=== PATIENT | female | born 1960 | race Caucasian/White ===

== ENCOUNTER 2016-08-25 07:39 | Day surgery (SDC) | payer OTHER ==
[~2016-08-25] VITALS: Ht 160 cm; Wt 75.8 kg
[~2016-08-25 07:39] MED LIST: CHOL100055 PO; LIDOCAINE 1% (10mg/ml) 2ml SDV INJ ONE; LR 1,000 ML IV SCH; PYRI100T2 PO
--- OUTSIDE RECORDS SUMMARY | 2016-08-25 07:42 | XMS REPORT | Referral Summary ---
Author Organization Unknown Address Unknown Phone Unavailable Care Team Providers Care Pouncer Name Role Phone Master Reece Primary Care Physician [phone] Encounter VC Date(s): 05/29/14 - 05/29/14 Via ISAC Finn, Sean, Urology [address] [place] [address] [address] [place], [place] [address] Discharge Diagnosis: Chronic trigonitis Discharge Disposition: Home or Self Care Attending Physician: Momo Bergman JR, MD Admitting Physician: Momo Bergman JR, MD Referring Physician: Master Reece DO Vital Signs Most recent to 1 oldest [Reference Range]: Blood Pressure 122/68 mmHg [90-140/60-90 mmHg] (05/29/14 2:10 PM) Problem List No data available for this section Allergies, Adverse Reactions, Alerts Substance Reaction Severity Status Bactrim DS Active Medications Tylenol Extra Strength mg, Oral, q6hr, 0 Refill(s) Start Date: 05/02/14 Status: Ordered Results No data available for this section Immunizations Vaccine Date Refusal Reason tetanus/diphth/pertuss (Tdap) adult/adol 05/11/01 Procedures Procedure Date Related Diagnosis Body Site Cystoscopy using panendoscope1 05/12/14 Mammogram - screening2 01/13/14 1Urethral calibration and dilitation. Hydrodistention of the bladder.SLTvaporization of chronic diffuse trigonitis. Bimanual pelvic exam. 2neg. result, done at [facility]- recommended to be done in 1 yr. Social History Social History Type Response Smoking Status Never smoker Assessment and Plan Extracted from: Title: Office Visit Note Author: Momo Bergman JR, MD Date: 05/29/14 Assessment/Plan Chronic trigonitis Status post cystoscopy, urethral calibration and dilatation, hydrodistention of bladder, and SLT laser vaporization of chronic diffuse trigonitis. She's doing well. I would like to see her again in 4 weeks. In about one week patient should be able to resume her normal activit as before surgery was done. Ordered: Office Visit Level 3 Est [id number]
--- OUTSIDE RECORDS SUMMARY | 2016-08-25 07:42 | XMS REPORT | Referral Summary ---
Author Author [facility], [facility] Medicine Organization Via [facility]AC Finn [facility] Address Unknown Phone Unavailable Care Team Providers Care Choke Reamer Name Role Phone Master Reece Primary Care Physician [phone] Encounter Date(s): 12/01/14 - 12/01/14 Via ISAC Finn [facility], [address] [place] [id number] Discharge Diagnosis: Acute UTI Discharge Diagnosis: Dysuria Discharge Disposition: 01-Home or Self Care Attending Physician: Meghna Bergman APRN Admitting Physician: Meghna Bergman APRN Vital Signs Most recent to 1 oldest [Reference Range]: Temperature Tympanic 36.6 degC [36.6-38.1 degC] (12/01/14 10:46 AM) Peripheral Pulse 74 bpm Rate [60-100 bpm] (12/01/14 10:46 AM) Blood Pressure 112/68 mmHg [90-140/60-90 mmHg] (12/01/14 10:46 AM) Problem List Condition Effective Dates Status Health Status Informant Obesity(Confirmed) Active patient Trigonitis(Confirmed Active ) Allergies, Adverse Reactions, Alerts Substance Reaction Severity Status Bactrim DS Active Medications oxybutynin 15 mg/24 hr oral tablet, extended release 15 mg 1 tabs, Oral, Daily, # 42 tabs, 0 Refill(s), Pharmacy: [facility] [id number], 1 tabs Oral Daily,x6 weeks Start Date: 06/11/15 Stop Date: 07/23/15 Status: Ordered Tylenol Regular Strength mg, Oral, q4hr, 0 Refill(s) Start Date: 06/11/15 Status: Ordered Results Urinalysis Most recent to 1 oldest [Reference Range]: UA Color Lt Yellow (12/01/14 11:10 AM) UA Appear Clear (12/01/14 11:10 AM) UA pH [5.0-8.0] 7.5 (12/01/14 11:10 AM) UA Leuk Est Pos 2+ [Negative] *ABN* (12/01/14 11:10 AM) UA Nitrite Negative [Negative] (12/01/14 11:10 AM) UA Protein Negative [Negative] (12/01/14 11:10 AM) UA Glucose Negative [Negative] (12/01/14 11:10 AM) UA Ketones Negative [Negative] (12/01/14 11:10 AM) UA Urobilinogen 0.2 mg/dL (12/01/14 11:10 AM) UA Bili [Negative] Negative (12/01/14 11:10 AM) UA Blood Negative (12/01/14 11:10 AM) UA Spec Grav 1.015 [1.003-1.030] (12/01/14 11:10 AM) Type Clean Catch (12/01/14 11:10 AM) UA WBC [0-4] 5-10 *ABN* (12/01/14 11:10 AM) UA RBC [0-2] None seen (12/01/14 11:10 AM) Epithelial Cells 2-5 (12/01/14 11:10 AM) UA Bacteria Rare (12/01/14 11:10 AM) UA Mucous Present (12/01/14 11:10 AM) Microbiology Reports TEST: Urine Culture STATUS: Auth (Verified) BODY SITE: SOURCE: Urine COLLECTED DATE/TIME: 12/01/14 11:10 AM Urine Culture Normal urogenital/skin oskar present Immunizations Vaccine Date Refusal Reason tetanus/diphth/pertuss (Tdap) adult/adol 05/11/01 Procedures Procedure Date Related Diagnosis Body Site Cystoscopy using panendoscope1 05/12/14 Mammogram - screening2 01/13/14 1Urethral calibration and dilitation. Hydrodistention of the bladder.SLTvaporization of chronic diffuse trigonitis. Bimanual pelvic exam. 2neg. result, done at [facility]- recommended to be done in 1 yr. Social History Social History Type Response Smoking Status Never smoker Assessment and Plan No data available for this section
--- OUTSIDE RECORDS SUMMARY | 2016-08-25 07:42 | XMS REPORT | Referral Summary ---
Author Author [facility] Organization [facility], [facility] Address Unknown Phone Unavailable Care Team Providers Care Vacuum Cooker Operator Name Role Phone Master Reece Primary Care Physician [phone] Encounter VC Date(s): 01/25/16 - 01/25/16 [facility] [address], [place] [address] Discharge Diagnosis: Overactive bladder Discharge Disposition: 01-Home or Self Care Attending Physician: Chucho Fisher MD Admitting Physician: Chucho Fisher MD Vital Signs Most recent to 1 oldest [Reference Range]: Peripheral Pulse 68 bpm Rate [60-100 bpm] (01/25/16 9:03 AM) Blood Pressure 114/72 mmHg [90-140/60-90 mmHg] (01/25/16 9:03 AM) Problem List Condition Effective Dates Status Health Status Informant Obesity(Confirmed) Active patient Syncope and Active collapse(Confirmed) Trigonitis(Confirmed Active ) Allergies, Adverse Reactions, Alerts Substance Reaction Severity Status Bactrim DS Active Medications Tylenol Regular Strength 1 tabs, Oral, q4hr, as needed for pain, 0 Refill(s) Start Date: 06/11/15 Status: Ordered Results No data available for this section Immunizations Vaccine Date Refusal Reason tetanus/diphth/pertuss (Tdap) adult/adol 05/11/01 Procedures Procedure Date Related Diagnosis Body Site Cystoscopy using panendoscope1 05/12/14 Mammogram - screening2 01/13/14 1Urethral calibration and dilitation. Hydrodistention of the bladder.SLTvaporization of chronic diffuse trigonitis. Bimanual pelvic exam. 2neg. result, done at [facility]- recommended to be done in 1 yr. Social History Social History Type Response Smoking Status Never smoker Assessment and Plan Extracted from: Title: Office Visit Note Author: Chucho Fisher MD Date: 01/25/16 Assessment/Plan Overactive bladder Explained to the patient that her symptoms are indicative of overactive bladderthe etiology of which ismost often idiopathic. Discussed the treatment optionsincluding medications,neuro- stimulation and Botox injections. Like to do a complete evaluation with cystoscopyfor which I'll schedule. I gave her samples of 10 mg Vesicare which she will try and let me knowofthe outcomeat a follow-up . Also advised to restrict fluidsparticularly the bladder irritantslike caffeine drinks and carbonated drinks. She'll also maintain a voiding diary. Follow- up in 2 weeks.
--- OUTSIDE RECORDS SUMMARY | 2016-08-25 07:42 | XMS REPORT | Referral Summary ---
Author Author [facility] Organization [facility] Address Unknown Phone Unavailable Care Team Providers Care Clinical Product Manager Name Role Phone Master Reece Primary Care Physician [phone] Encounter VC Date(s): 07/26/15 - 07/26/15 [facility] [address] [place] [address] [facility] Discharge Diagnosis: Acute upper respiratory infection Discharge Disposition: 01-Home or Self Care Attending Physician: Fabi Rothman PA-C Attending Physician: Provider, Immediate Care Admitting Physician: Provider, Immediate Care Vital Signs Most recent to 1 oldest [Reference Range]: Temperature Oral 36.4 degC [35.8-37.3 degC] (07/26/15 3:50 PM) Peripheral Pulse 72 bpm Rate [60-100 bpm] (07/26/15 3:50 PM) Blood Pressure 106/60 mmHg [90-140/60-90 mmHg] (07/26/15 3:50 PM) SpO2 95 % (07/26/15 3:50 PM) Problem List Condition Effective Dates Status Health Status Informant Obesity(Confirmed) Active patient Trigonitis(Confirmed Active ) Allergies, Adverse Reactions, Alerts Substance Reaction Severity Status Bactrim DS Active Medications Flonase 50 mcg/inh nasal spray 1 sprays, Nasal, BID, # 16 g, 0 Refill(s), Pharmacy: [facility] [id number] Start Date: 07/26/15 Status: Ordered oxybutynin 15 mg/24 hr oral tablet, extended release 15 mg 1 tabs, Oral, Daily, # 42 tabs, 0 Refill(s), Pharmacy: [id number], 1 tabs Oral Daily,x6 weeks Start Date: [...] Bimanual pelvic exam. 2neg. result, done at [facility]- recommended to be done in 1 yr. Social History Social History Type Response Smoking Status Never smoker Assessment and Plan Extracted from: Title: Ambulatory Patient Education Author: Fabi Rothman PA-C Date: 07/25 ENT Infeccin del tracto respiratorio superior (Upper Respiratory Infection) La mayora de las infecciones del tracto respiratorio superior son infecciones virales de las vas que llevan el aire a los pulmones. Un infeccin del tracto respiratorio superior afecta la nariz, la garganta y las vas respiratorias superiores. El tipo ms frecuente de infeccin del tracto respiratorio superior es la nasofaringitis, que habitualmente se conoce chaya "resfro comn". Las infecciones del tracto respiratorio superior siguen merrill curso y por lo general se curan solas. En la mayora de los casos, la infeccin del tracto respiratorio superior no requiere atencin mdica, brant a veces, despus de mil infeccin viral, puede surgir mil infeccin bacteriana en las vas respiratorias superiores. Maypearl se conoce chaya infeccin secundaria. Las infecciones sinusales y en el odo medio son tipos frecuentes de infecciones secundarias en el tracto respiratorio superior. La neumona bacteriana tambin puede complicar un cuadro de infeccin del tracto respiratorio superior. Sarina tipo de infeccin puede empeorar el asma y la enfermedad pulmonar obstructiva crnica (EPOC). En algunos casos, estas complicaciones pueden requerir atencin mdica de emergencia y poner en peligro la abraham. CAUSAS Sadia todas las infecciones del tracto respiratorio superior se deben a los virus. Un virus es un tipo de microbio que puede contagiarse de mil persona a otra. FACTORES DE RIESGO Puede estar en riesgo de sufrir mil infeccin del tracto respiratorio superior si: Fuma. Tiene mil enfermedad pulmonar o cardaca crnica. Tiene debilitado el sistema de defensa (inmunitario) del cuerpo. Es muy joven o de edad muy avanzada. Tiene asma o alergias nasales. Trabaja en reas donde hay marleen gente o poca ventilacin. Trabaja en mil escuela o en un centro de atencin mdica. SIGNOS Y SNTOMAS Habitualmente, los sntomas aparecen de 2a 3das despus de entrar en contacto con el virus del resfro. La mayora de las infecciones virales en el tracto respiratorio superior herr de 7a 10das. Sin embargo, las infecciones virales en el tracto respiratorio superior a causa del virus de la gripe pueden durar de 14a 18das y, habitualmente, son ms graves. Entre los sntomas se pueden incluir los siguientes: Secrecin o congestin nasal. Estornudos. Tos. Dolor de garganta. Dolor de lenin. Fatiga. Fiebre. Prdida del apetito. Dolor en la frente, detrs de los ojos y por encima de los pmulos ( dolor sinusal). Mavis musculares. DIAGNSTICO El mdico puede diagnosticar mil infeccin del tracto respiratorio superior mediante los siguientes estudios: Examen fsico. Pruebas para verificar si los sntomas no se deben a otra afeccin, por ejemplo: Faringitis estreptoccica. Sinusitis. Neumona. Asma. TRATAMIENTO Esta infeccin desaparece blaise, con el tiempo. No puede curarse con medicamentos, brant a menudo se prescriben para aliviar los sntomas. Los medicamentos pueden ser tiles para lo siguiente: Bajar la fiebre. Reducir la tos. Aliviar la congestin nasal. INSTRUCCIONES PARA EL CUIDADO EN EL HOGAR [place] los medicamentos solamente chaya se lo haya indicado el mdico. A fin de aliviar el dolor de garganta, shady grgaras con solucin salina templada o consuma caramelos para la tos, chaya se lo haya indicado el m dico. Use un humidificador de vapor clido o inhale el vapor de la ducha para aumentar la humedad del aire. [place]pearl facilitar la respiracin. Smitha suficiente lquido para mantener la orina silvina o de color amarillo plido. Consuma sopas y otros caldos transparentes, y alimntese dulce. Descanse todo lo que sea necesario. Regrese al trabajo cuando la temperatura se le haya normalizado o cuando el mdico lo autorice. Es posible que deba quedarse en merrill casa desirae un tiempo prolongado, para no infectar a los dems. Tambin puede usar un barbijo y lavarse las maria antonia con cuidado para evitar la propagacin del virus. Aumente el uso del inhalador si tiene asma. No consuma ningn producto que contenga tabaco, lo que incluye cigarrillos, tabaco de mascar o cigarrillos electrnicos. Si necesita ayuda para dejar de fumar, consulte al mdico. PREVENCIN La mejor manera de protegerse de un resfro es mantener mil higiene adecuada. Evite el contacto oral o fsico con personas que tengan sntomas de resfro. En maverick de contacto, lvese las maria antonia con frecuencia. No hay pruebas claras de que la vitaminaC, la vitaminaE, la equincea o el ejercicio reduzcan la probabilidad de contraer un resfro. Sin embargo, siempre se recomienda descansar mucho, hacer ejercicio y alimentarse dulce. SOLICITE ATENCIN MDICA SI: Merrill estado empeora en lugar de mejorar. Los medicamentos no logran controlar los sntomas. Tiene escalofros. La sensacin de falta de aire empeora. Tiene mucosidad marrn o marcie. Tiene secrecin nasal amarilla o marrn. Le duele la rain, especialmente al inclinarse hacia adelante. Tiene fiebre. Tiene los ganglios del jocelyn hinchados. Siente dolor al tragar. Tiene zonas vipin en la parte de atrs de la garganta. SOLICITE ATENCIN MDICA DE INMEDIATO SI: Tiene sntomas intensos o persistentes de: Dolor de lenin. Dolor de odos. Dolor sinusal. Dolor en el pecho. Tiene enfermedad pulmonar crnica y cualquiera de estos sntomas: Sibilancias. Tos prolongada. Tos con ebenezer. Cambio en la mucosidad habitual. Presenta rigidez en el jocelyn. Tiene cambios en: La visin. La audicin. El pensamiento. El estado de alexa. ASEGRESE DE QUE: Comprende estas instrucciones. Controlar merrill afeccin. Recibir ayuda de inmediato si no mejora o si empeora. Esta informacin no tiene chaya fin reemplazar el consejo del mdshawn. Aseg rese de hacerle al lauryn cualquier pregunta que orlandoga. Document Released: 02/04/2006 Document Revised: 02/13/2015 ExitCare Patient Information 2015 [employer] [facility]. No follow up information was provided. Extracted from: Title: Office Visit Note Author: Fabi Rothman PA-C Date: 07/26/15 Assessment/Plan Acute upper respiratory infection Discussed with patient that this appears to be a viral illness. Recommend Flonase nasal spray. Continue over-the- counter cough and cold medication. Recommend supportive care. Rest. Practice good hand hygiene. Increase fluids.Tylenol/Ibuprofen as needed for fever or pain. FU with PCP if not improving, worsening symptoms, or as needed. Questions were answered. Patient verbalized understanding. Patient left in stable condition. Ordered: fluticasone nasal, 1 sprays, Nasal, BID, # 16 g, 0 Refill(s), Pharmacy: [facility] [id number] Office Visit Level 3 Est [id number]
--- OUTSIDE RECORDS SUMMARY | 2016-08-25 07:42 | XMS REPORT | Continuity of Care Document ---
Author Author [facility] Organization [facility] Address Unknown Phone Unavailable Support Name Relationship Address Phone ALESIA GUZMAN MD Caregiver [address] [place] [address] [place], [place] [phone] ROSA CALDERA DO Caregiver [address] [place] [address] [place] [address] [phone] REYES GANDHI Next Of Kin [address] [place], [place] [address] Insurance Providers Payer Name Policy Number Subscriber Name Relationship [employer] [id number] Reyes Gandhi 01 Spouse Advance Directives Directive Response Recorded Date/Time Ordered Resuscitation Status Full Code 05/12/14 6:30am Problems No known problems or medical conditions. Medications Medication Dose Route Sig Days/Qty Instructions Order Date Discontinued Date Status Pyridoxine HCl 1 Tab PO DAILY 05/12/14 Active Cholecalciferol (Vitamin D3) 1 Cap PO DAILY 05/12/14 Active Social History Social History Problem Response Recorded Date/Time Chewing Tobacco Status No 05/12/2014 7:30am Hx Substance Use No 05/12/2014 7:30am Hx Alcohol Use No 05/12/2014 7:30am Query Response Start Date Stop Date Smoking Status Never smoker Hospital Discharge Instructions No hospital discharge instructions. Plan of Care No plan of care. Functional Status No functional status results. Allergies, Adverse Reactions, Alerts Allergen Type Severity Reaction Status Last Updated NKDA Allergy Unknown Active 05/12/14 Immunizations Name Given Type Hx Influenza Vaccination No Historical Hx Pneumococcal Vaccination No Historical Hx Influenza Vaccination No Historical Vital Signs Acute Vital Signs Vital Response Date/Time Temperature (Fahrenheit) 97.6 deg F (96.8 - 99.1) Temperature (Calculated Celsius) 36.60529 degrees C (36.0 - 37.3) Temperature Source Axillary Pulse Rate (adult) 52 bpm (60 - 100) Respiratory Rate 16 breaths/min (10 - 20) O2 Sat by Pulse Oximetry 100 % (90 - 100) Oxygen Delivery Method Room Air Blood Pressure 122/56 mm Hg Blood Pressure Source Automatic Cuff Height 5 ft 3 in Weight 165 lb Body Mass Index 29.0 kg/m^2 Results No known relevant diagnostic tests, laboratory data and/or discharge summary. Procedures No known history of procedures.
--- OUTSIDE RECORDS SUMMARY | 2016-08-25 07:43 | XMS REPORT | Referral Summary ---
Author Author [facility] Finn [facility], [facility] Organization Via KaileeISAC Christensen [facility] Address Unknown Phone Unavailable Care Team Providers Care Linking Machine Operator Name Role Phone Master Reece Primary Care Physician [phone] Encounter VC Date(s): 03/06/16 - 03/06/16 [facility] [place] [address] Discharge Diagnosis: Swollen L ankle Discharge Disposition: 01-Home or Self Care Attending Physician: Master Reece DO Admitting Physician: Master Reece DO Vital Signs Most recent to 1 oldest [Reference Range]: Temperature Tympanic 36 degC [36.6-38.1 degC] *LOW* (03/06/16 4:16 PM) Peripheral Pulse 66 bpm Rate [60-100 bpm] (03/06/16 4:16 PM) Blood Pressure 150/80 mmHg [90-140/60-90 mmHg] *HI* (03/06/16 4:16 PM) Problem List Condition Effective Dates Status Health Status Informant Obesity(Confirmed) Active patient Syncope and Active collapse(Confirmed) Trigonitis(Confirmed Active ) Allergies, Adverse Reactions, Alerts Substance Reaction Severity Status Bactrim DS Active Fish Oil Active VESIcare swelling in hand Active Medications Tylenol Regular Strength 1 tabs, [...] Bimanual pelvic exam. 2neg. result, done at [facility]- recommended to be done in 1 yr. Social History Social History Type Response Smoking Status Never smoker Assessment and Plan Extracted from: Title: Office Visit Note Author: Master Reece DO Date: 03/06/16 Assessment/Plan Swollen L ankle 1. Labs from 2 weeks ago reviewed in detail with the patient include CBC, complete metabolic profile, C-reactive protein, rheumatoid factor and sedimentation rate. Her sedimentation rate was slightly elevated, the rest of labs are essentially normal. 2. 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 3. Referral to senior windows engineer is pending 4. She was given Kenalog 120 mg IM. 5. We will try to get her in to see senior windows engineer sooner than her April 29 appointment. Ordered: Office Visit Level 4 Est [id number]
--- OUTSIDE RECORDS SUMMARY | 2016-08-25 07:43 | XMS REPORT | Referral Summary ---
Author Author [facility], [facility] Organization [facility] Finn [facility] Address Unknown Phone Unavailable Care Team Providers Care Director Learning Name Role Phone Master Reece Primary Care Physician [phone] Encounter VC Date(s): 02/04/16 - 02/04/16 [facility] [address] [place] [address] Discharge Diagnosis: Drug reaction Discharge Diagnosis: Hand joint pain Discharge Disposition: 01-Home or Self Care Attending Physician: Master Reece DO Admitting Physician: Master Reece DO Vital Signs Most recent to 1 oldest [Reference Range]: Temperature Tympanic 36.2 degC [36.6-38.1 degC] *LOW* (02/04/16 3:03 PM) Peripheral Pulse 56 bpm Rate [60-100 bpm] *LOW* (02/04/16 3:03 PM) Blood Pressure 120/70 mmHg [90-140/60-90 mmHg] (02/04/16 3:03 PM) Problem List Condition Effective Dates Status Health Status Informant Obesity(Confirmed) Active patient Syncope and Active collapse(Confirmed) Trigonitis(Confirmed Active ) Allergies, Adverse Reactions, Alerts Substance Reaction Severity Status Bactrim DS Active Fish Oil Active [facility]care swelling in hand Active Medications predniSONE 20 mg oral tablet 40 mg 2 tabs, Oral, Daily, with food starting tomorrow, X 4 days, # 8 tabs, 0 Refill(s), Pharmacy: [facility] [id number], 2 tabs Oral Daily,x4 days,Instr :with food; starting tomorrow Start Date: 02/03/16 Stop Date: 02/07/16 Status: Ordered Tylenol Regular Strength 1 tabs, Oral, q4hr, as needed for pain, 0 Refill(s) Start Date: 06/11/15 Status: Ordered VESIcare 10 mg oral tablet 10 mg 1 tabs, Oral, Daily, # 30 tabs, 0 Refill(s) Start Date: 02/04/16 Status: Ordered Results No data available for this section Immunizations Vaccine Date Refusal Reason tetanus/diphth/pertuss (Tdap) adult/adol 05/11/01 Procedures Procedure Date Related Diagnosis Body Site Cystoscopy using panendoscope1 05/12/14 Mammogram - screening2 01/13/14 1Urethral calibration and dilitation. Hydrodistention of the bladder.SLTvaporization of chronic diffuse trigonitis. Bimanual pelvic exam. 2neg. result, done at [facility]- recommended to be done in 1 yr. Social History Social History Type Response Smoking Status Never smoker Assessment and Plan Extracted from: Title: Office Visit Note Author: Master Reece DO Date: 02/04/16 Assessment/Plan 1.Drug reaction 1. Immediate care note was reviewed in detail. 2. Based on the patient's history, it sounds like she had erythema multiforme representation. This is documented side effects of Vesicare. 3. Patient was advised that the treatment with Kenalog followed by prednisone is appropriate and she should continue. 4. Continue holding Vesicare until she follows up with Dr. Fisher Ordered: Office Visit Level 3 Est [id number] 2.Hand joint pain 1. Recommendations as above. 2. Continue prednisone. 3. Follow-up if no resolution after steroid treatment. Ordered: Office Visit Level 3 Est [id number]
--- OUTSIDE RECORDS SUMMARY | 2016-08-25 07:43 | XMS REPORT | Referral Summary ---
Author Author [facility], Family [facility] Organization [facility] Address Unknown Phone Unavailable Care Team Providers Care Roller Machine Operator Name Role Phone Master Reece Primary Care Physician [phone] Encounter VC Date(s): 10/19/15 - 10/19/15 [facility] [place] [address] Discharge Disposition: 01-Home or Self Care Attending Physician: Master Reece DO Admitting Physician: Master Reece DO Vital Signs Most recent to 1 oldest [Reference Range]: Temperature Tympanic 36.1 degC [36.6-38.1 degC] *LOW* (10/19/15 8:59 AM) Peripheral Pulse 68 bpm Rate [60-100 bpm] (10/19/15 8:59 AM) Blood Pressure 132/68 mmHg [90-140/60-90 mmHg] (10/19/15 8:59 AM) Problem List Condition Effective Dates Status Health Status Informant Obesity(Confirmed) Active patient Trigonitis(Confirmed Active ) Allergies, Adverse Reactions, Alerts Substance Reaction Severity Status Bactrim DS Active Medications Flonase 50 mcg/inh nasal spray 1 sprays, Nasal, BID, # 16 g, 6 Refill(s), Pharmacy: [facility] [id number] Start Date: 10/19/15 Stop Date: 05/16/16 Status: Ordered meclizine 25 mg oral tablet 25 mg 1 tabs, Oral, TID, as needed for motion sickness, # 30 tabs, 0 Refill(s), Pharmacy: [facility] [id number], 1 tabs Oral TID,PRN:as needed for motion sickness Start Date: 10/19/15 Stop Date: 11/18/15 Status: Ordered oxybutynin 15 mg/24 hr oral tablet, extended release 15 mg 1 tabs, Oral, Daily, # 42 tabs, 0 Refill(s), Pharmacy: [facility] [id number], 1 tabs Oral Daily,x6 weeks Start Date: 06/11/15 Stop Date: 07/23/15 Status: Ordered Tylenol Regular Strength mg, Oral, q4hr, 0 Refill(s) Start Date: 06/11/15 Status: Ordered Results Hematology Most recent to 1 oldest [Reference Range]: WBC [4.8-10.8 5.9 10*3/uL 10*3/uL] (10/19/15 9:40 AM) RBC [4.00-5.20] 4.28 (10/19/15 9:40 AM) Hgb [12.0-16.0 13.2 gm/dL gm/dL] (10/19/15 9:40 AM) Hct [37.0-47.0 %] 38.4 % (10/19/15 9:40 AM) MCV [82.0-99.0 fL] 89.7 fL (10/19/15 9:40 AM) MCH [27.0-32.0 pg] 30.8 pg (10/19/15 9:40 AM) MCHC [32.0-36.0 34.4 gm/dL gm/dL] (10/19/15 9:40 AM) RDW [11.5-14.5 %] 12.6 % (10/19/15 9:40 AM) Platelet [150-400 225 10*3/uL 10*3/uL] (10/19/15 9:40 AM) MPV [8.8-14.8 fL] 11.0 fL (10/19/15 9:40 AM) Immature 0.2 % Granulocytes (10/19/15 9:40 AM) [0.0-1.0 %] Neutrophils [51-75 61 % %] (10/19/15 9:40 AM) Lymphocytes [20-46 30 % %] (10/19/15 9:40 AM) Monocytes [4-11 %] 9 % (10/19/15 9:40 AM) Eosinophils [0-4 %] 0 % (10/19/15 9:40 AM) Basophils [0-2 %] 0 % (10/19/15 9:40 AM) Neutro Absolute 3.60 10*3 [1.90-7.00 10*3] (10/19/15 9:40 AM) Lymph Absolute 1.73 10*3 [0.80-3.30 10*3] (10/19/15 9:40 AM) [place] Absolute 0.51 10*3 [0.30-1.00 10*3] (10/19/15 9:40 AM) Eos Absolute 0.00 10*3 [0.00-0.50 10*3] (10/19/15 9:40 AM) Baso Absolute 0.02 10*3 [0.00-0.20 10*3] (10/19/15 9:40 AM) Chemistry Most recent to 1 oldest [Reference Range]: Sodium Lvl [135-144 141 mEq/L mEq/L] (10/19/15 9:40 AM) Potassium Lvl 4.4 mEq/L [3.5-5.2 mEq/L] (10/19/15 9:40 AM) Chloride [99-111 106 mEq/L mEq/L] (10/19/15 9:40 AM) CO2 [22-31 mEq/L] 27 mEq/L (10/19/15 9:40 AM) AGAP [3-20] 8 (10/19/15 9:40 AM) BUN [10-20 mg/dL] 13 mg/dL (10/19/15 9:40 AM) Glucose Lvl [70-99 95 mg/dL mg/dL] (10/19/15 9:40 AM) Creatinine Lvl 0.73 mg/dL [0.57-1.11 mg/dL] (10/19/15 9:40 AM) eGFR [>60 mL/min] >60 mL/min 1 (10/19/15 9:40 AM) Calcium Lvl 9.5 mg/dL [8.9-10.5 mg/dL] (10/19/15 9:40 AM) Albumin Lvl [3.5-5.0 4.6 gm/dL gm/dL] (10/19/15 9:40 AM) Total Protein 7.3 gm/dL [6.4-8.3 gm/dL] (10/19/15 9:40 AM) Globulin [1.8-4.0 2.7 gm/dL gm/dL] (10/19/15 9:40 AM) ALT [0-55 U/L] 11 U/L (10/19/15 9:40 AM) AST [5-34 U/L] 16 U/L (10/19/15 9:40 AM) Alk Phos [40-150 105 U/L U/L] (10/19/15 9:40 AM) Bili Total [0.2-1.2 0.7 mg/dL mg/dL] (10/19/15 9:40 AM) Chol [0-199 mg/dL] 230 mg/dL *HI* (10/19/15 9:40 AM) Trig [0-149 mg/dL] 96 mg/dL (10/19/15 9:40 AM) HDL [40-84 mg/dL] 69 mg/dL (10/19/15 9:40 AM) LDL [0-130 mg/dL] 142 mg/dL *HI* (10/19/15 9:40 AM) VLDL Cholesterol 19 mg/dL [0-28 mg/dL] (10/19/15 9:40 AM) Cardiac Risk 3.3 [0.0-5.0] (10/19/15 9:40 AM) 1Result Comment: Multiply eGFR results by 1.21 for race. Immunizations Vaccine Date Refusal Reason tetanus/diphth/pertuss (Tdap) adult/adol 05/11/01 Procedures Procedure Date Related Diagnosis Body Site Collection of venous blood by venipuncture 10/19/15 Cystoscopy using panendoscope1 05/12/14 Mammogram - screening2 01/13/14 1Urethral calibration and dilitation. Hydrodistention of the bladder.SLTvaporization of chronic diffuse trigonitis. Bimanual pelvic exam. 2neg. result, done at [facility]- recommended to be done in 1 yr. Social History Social History Type Response Smoking Status Never smoker Assessment and Plan Extracted from: Title: Office Visit Note Author: Master Reece DO Date: 10/19/15 Assessment/Plan Allergic rhinitis 1. Continue with Flonase one puff per nostril twice a day. 2. Consider ttel-zwe-dyrhefl antihistamine. BPPV (benign paroxysmal positional vertigo) 1. History and clinical finding consistent with benign paroxysmal positional vertigo. Pathophysiology of this presentation was discussed in detail with the patient, handout was provided in Welsh, all questions were answered. 2. Meclizine one tablet every 8 hours as needed for dizziness. 3. She was referred to physical therapy for Monae's maneuver treatment 4. Follow-up if worsening presentation. Ordered: CBC w/ Differential Comprehensive Metabolic Panel Hemoglobin A1c Lipid Panel Office Visit Level 4 Est 07466 Female pelvic pain 1. We will set her up for repeat pelvic ultrasound. 2. If symptoms persist then we plan on sending her to iridologist. Ordered: Hemoglobin A1c Lipid Panel Office Visit Level 4 Est 36135 US Transvaginal/Pelvic Complete Mixed hyperlipidemia 1. Fasting labs ordered today, report is pending. Ordered: CBC w/ Differential Comprehensive Metabolic Panel Hemoglobin A1c Lipid Panel Office Visit Level 4 Est 55610 Orders: fluticasone nasal, 1 sprays, Nasal, BID, # 16 g, 6 Refill(s), Pharmacy : [facility] [id number] meclizine, 25 mg 1 tabs, Oral, TID, as needed for motion sickness, # 30 tabs, 0 Refill(s), Pharmacy: [facility] [id number], 1 tabs Oral TID,PRN:as needed for motion sickness Extracted from: Title: Ambulatory Patient Education Author: Master Reece DO Date: 10/19/15 Family Medicine Vrtigo postural lilia (Benign Positional Vertigo) Vrtigo es la sensacin de que el entorno se mueve estando quieto. Es la forma ms frecuente de vrtigo. Lilia significa que la causa del trastorno no es grave. Es ms frecuente en adultos mayores. CAUSAS Es el resultado de un trastorno en el sistema laberntico. Es mil leandro en el o do medio que ayuda a controlar el equilibrio. La causa puede ser mil infecci n viral, mil lesin en la lenin o un movimiento repetitivo. Sin embargo, a menudo no se halla causa. SNTOMAS Los sntomas de vrtigo posicional lilia se producen al assistant track and field coach la lenin o los ojos en diferentes direcciones. Algunos de los sntomas pueden ser: Prdida de equilibrio y cadas. Vmitos. Visin borrosa. Mareos. Nuseas. Movimientos oculares involuntarios (nistagmus). DIAGNSTICO El vrtigo postural lilia se diagnostica mediante un examen fsico. Si la causa especfica de aguilar vrtigo posicional lilia es desconocido, aguilar mdico puede indicar diagnsticos por imgenes, chaya la resonancia magntica (RM) o la tomografa computada (TC). TRATAMIENTO El mdico le podr recomendar movimientos o procedimientos para corregir el v rtigo posicional lilia. Para tratar los sntomas pueden indicarse medicamentos chaya meclizina, benzodiazepinas y medicamentos para las nuseas. En casos raros, si los sntomas son causados por ciertos trastornos que afectan el odo interno, es posible que necesite ciruga. INSTRUCCIONES PARA EL CUIDADO EN EL HOGAR Siga las indicaciones del mdico. Muvase lentamente. No shady movimientos bruscos con la lenin ni el cuerpo. Evite conducir vehculos. Evite operar maquinarias pesadas. Evite realizar tareas que seran peligrosas para usted u otras personas desirae un episodio de vrtigo. Debe ingerir gran cantidad de lquido para mantener la orina de corby cornelia o color amarillo plido. SOLICITE ATENCIN MDICA DE INMEDIATO SI: Tiene dificultad para hablar, caminar, siente debilidad o tiene problemas para usar los brazos, las maria antonia o las piernas. Tiene dificultad para respirar. Sufre un dolor de lenin intenso. Las nuseas o los vmitos persisten o empeoran. Tiene cambios en la visin. Patria familiares o amigos notan cambios en aguilar conducta. El dolor empeora. Tiene fiebre. Comienza a sentir rigidez en el jocelyn o sensibilidad a la audie. ASEGRESE DE QUE: Comprende estas instrucciones. Controlar aguilar enfermedad. Solicitar ayuda de inmediato si no mejora o si empeora. Esta informacin no tiene chaya fin reemplazar el consejo del mdico. Aseg rese de hacerle al mdico cualquier pregunta que tenga. Document Released: 08/13/2009 Document Revised: 07/19/2012 [facility] Patient Information 2016 [facility], [facility]. No follow up information was provided.
--- OUTSIDE RECORDS SUMMARY | 2016-08-25 07:43 | XMS REPORT | Referral Summary ---
Author Author [facility], Family Medicine Organization [facility] Address Unknown Phone Unavailable Care Team Providers Care Trains Dispatcher Supervisor Name Role Phone Master Reece Primary Care Physician [phone] Encounter VC Date(s): 04/20/15 - 04/20/15 [facility], [address] [place] [id number] Discharge Diagnosis: Well woman exam with routine gynecological exam Discharge Diagnosis: Urinary frequency Discharge Disposition: -Home or Self Care Attending Physician: Meghna Bergman APRN Admitting Physician: Meghna Bergman APRN Vital Signs Most recent to 1 oldest [Reference Range]: Peripheral Pulse 70 bpm Rate [60-100 bpm] (04/20/15 9:07 AM) Blood Pressure 112/72 mmHg [90-140/60-90 mmHg] (04/20/15 9:07 AM) Problem List Condition Effective Dates Status Health Status Informant Obesity(Confirmed) Active patient Allergies, Adverse Reactions, Alerts Substance Reaction Severity Status Bactrim DS Active Medications No Known Medications Results Urinalysis Most recent to 1 oldest [Reference Range]: UA Color Yellow (04/20/15 9:45 AM) UA Appear Clear (04/20/15 9:45 AM) UA pH [5.0-8.0] 7.5 (04/20/15 9:45 AM) UA Leuk Est Trace [Negative] *ABN* (04/20/15 9:45 AM) UA Nitrite Negative [Negative] (04/20/15 9:45 AM) UA Protein Negative [Negative] (04/20/15 9:45 AM) UA Glucose Negative [Negative] (04/20/15 9:45 AM) UA Ketones Negative [Negative] (04/20/15 9:45 AM) UA Urobilinogen 0.2 mg/dL [<1.0 mg/dL] (04/20/15 9:45 AM) UA Bili [Negative] Negative (04/20/15 9:45 AM) UA Blood [Negative] Trace *ABN* (04/20/15 9:45 AM) UA Spec Grav 1.009 [1.003-1.030] (04/20/15 9:45 AM) Type Clean Catch (04/20/15 9:45 AM) UA WBC [0-4] 0-2 (04/20/15 9:45 AM) UA RBC [0-4] 0-4 (04/20/15 9:45 AM) Epithelial Cells 2-5 (04/20/15 9:45 AM) UA Hyal Cast [0-3] 1-3 (04/20/15 9:45 AM) Immunizations Vaccine Date Refusal Reason tetanus/diphth/pertuss (Tdap) adult/adol 05/11/01 Procedures Procedure Date Related Diagnosis Body Site Cystoscopy using panendoscope1 05/12/14 Mammogram - screening2 01/13/14 1Urethral calibration and dilitation. Hydrodistention of the bladder.SLTvaporization of chronic diffuse trigonitis. Bimanual pelvic exam. 2neg. result, done at [facility]- recommended to be done in 1 yr. Social History Social History Type Response Smoking Status Never smoker Assessment and Plan No data available for this section
--- OUTSIDE RECORDS SUMMARY | 2016-08-25 07:43 | XMS REPORT | Referral Summary ---
Author Author [facility], Family Medicine Organization Via [facility] Christ[facility] Address Unknown Phone Unavailable Care Team Providers Care Sloop Captain Name Role Phone Master Reece Primary Care Physician [phone] Encounter VC Date(s): 01/11/16 - 01/11/16 [facility], [address] [place] [id number] Discharge Disposition: 01-Home or Self Care Attending Physician: Master Reece DO Admitting Physician: Master Reece DO Vital Signs Most recent to 1 oldest [Reference Range]: Temperature Tympanic 36.3 degC [36.6-38.1 degC] *LOW* (01/11/16 9:09 AM) Peripheral Pulse 68 bpm Rate [60-100 bpm] (01/11/16 9:09 AM) Blood Pressure 145/78 mmHg [90-140/60-90 mmHg] *HI* (01/11/16 9:09 AM) Problem List Condition Effective Dates Status Health Status Informant Obesity(Confirmed) Active patient Trigonitis(Confirmed Active ) Allergies, Adverse Reactions, Alerts Substance Reaction Severity Status Bactrim DS Active Medications Flonase 50 mcg/inh nasal spray 1 sprays, Nasal, BID, # 16 g, 6 Refill(s), Pharmacy: [facility] [id number] Start Date: 10/19/15 Stop Date: 05/16/16 Status: Ordered oxybutynin 15 mg/24 hr oral tablet, extended release 15 mg 1 tabs, Oral, Daily, # 42 tabs, 0 Refill(s), Pharmacy: [facility] [id number], 1 tabs Oral Daily,x6 weeks Start Date: 06/11/15 Stop Date: 07/23/15 Status: Ordered Tylenol Regular Strength mg, Oral, q4hr, 0 Refill(s) Start Date: 06/11/15 Status: Ordered Results Hematology Most recent to 1 oldest [Reference Range]: WBC [4.8-10.8 6.9 10*3/uL 10*3/uL] (01/11/16 10:28 AM) RBC [4.00-5.20] 4.34 (01/11/16 10:28 AM) Hgb [12.0-16.0 13.6 gm/dL gm/dL] (01/11/16 10:28 AM) Hct [37.0-47.0 %] 38.3 % (01/11/16 10:28 AM) MCV [82.0-99.0 fL] 88.2 fL (01/11/16 10:28 AM) MCH [27.0-32.0 pg] 31.3 pg (01/11/16 10:28 AM) MCHC [32.0-36.0 35.5 gm/dL gm/dL] (01/11/16 10:28 AM) RDW [11.5-14.5 %] 12.8 % (01/11/16 10:28 AM) Platelet [150-400 214 10*3/uL 10*3/uL] (01/11/16 10:28 AM) MPV [8.8-14.8 fL] 10.2 fL (01/11/16 10:28 AM) Immature 0.0 % Granulocytes (01/11/16 10:28 AM) [0.0-1.0 %] Neutrophils [51-75 58 % %] (01/11/16 10:28 AM) Lymphocytes [20-46 32 % %] (01/11/16 10:28 AM) Monocytes [4-11 %] 10 % (01/11/16 10:28 AM) Eosinophils [0-4 %] 0 % (01/11/16 10:28 AM) Basophils [0-2 %] 0 % (01/11/16 10:28 AM) Neutro Absolute 4.03 10*3 [1.90-7.00 10*3] (01/11/16 10:28 AM) Lymph Absolute 2.18 10*3 [0.80-3.30 10*3] (01/11/16 10:28 AM) Esmeralda Absolute 0.69 10*3 [0.30-1.00 10*3] (01/11/16 10:28 AM) Eos Absolute 0.00 10*3 [0.00-0.50 10*3] (01/11/16 10:28 AM) Baso Absolute 0.03 10*3 [0.00-0.20 10*3] (01/11/16 10:28 AM) Chemistry Most recent to 1 oldest [Reference Range]: Sodium Lvl [135-144 143 mEq/L mEq/L] (01/11/16 10:28 AM) Potassium Lvl 4.3 mEq/L [3.5-5.2 mEq/L] (01/11/16 10:28 AM) Chloride [99-111 108 mEq/L mEq/L] (01/11/16 10:28 AM) CO2 [22-31 mEq/L] 27 mEq/L (01/11/16 10:28 AM) AGAP [3-20] 8 (01/11/16 10:28 AM) BUN [10-20 mg/dL] 9 mg/dL *LOW* (01/11/16 10:28 AM) Glucose Lvl [70-99 95 mg/dL mg/dL] (01/11/16 10:28 AM) Creatinine Lvl 0.69 mg/dL [0.57-1.11 mg/dL] (01/11/16 10:28 AM) eGFR [>60 mL/min] >60 mL/min 1 (01/11/16 10:28 AM) Calcium Lvl 9.8 mg/dL [8.9-10.5 mg/dL] (01/11/16 10:28 AM) Albumin Lvl [3.5-5.0 4.8 gm/dL gm/dL] (01/11/16 10:28 AM) Total Protein 7.8 gm/dL [6.1-7.7 gm/dL] *HI* (01/11/16 10:28 AM) Globulin [1.8-4.0 3.0 gm/dL gm/dL] (01/11/16 10:28 AM) ALT [0-55 U/L] 15 U/L (01/11/16 10:28 AM) AST [5-34 U/L] 20 U/L (01/11/16 10:28 AM) Alk Phos [40-150 112 U/L U/L] (01/11/16 10:28 AM) Bili Total [0.2-1.2 0.7 mg/dL mg/dL] (01/11/16 10:28 AM) TSH with Reflex Free 2.36 T4 [0.35-4.94] (01/11/16 10:28 AM) 1Result Comment: Multiply eGFR results by 1.21 for race. Urinalysis Most recent to 1 oldest [Reference Range]: UA Color Yellow (01/11/16 10:39 AM) UA Appear Cloudy *ABN* (01/11/16 10:39 AM) UA pH [5.0-8.0] 7.5 (01/11/16 10:39 AM) UA Leuk Est Pos 3+ [Negative] *ABN* (01/11/16 10:39 AM) UA Nitrite Negative [Negative] (01/11/16 10:39 AM) UA Protein Negative [Negative] (01/11/16 10:39 AM) UA Glucose Negative [Negative] (01/11/16 10:39 AM) UA Ketones Negative [Negative] (01/11/16 10:39 AM) UA Urobilinogen 0.2 mg/dL [<1.0 mg/dL] (01/11/16 10:39 AM) UA Bili [Negative] Negative (01/11/16 10:39 AM) UA Blood [Negative] Pos 1+ *ABN* (01/11/16 10:39 AM) UA Spec Grav 1.007 [1.003-1.030] (01/11/16 10:39 AM) Type Voided (01/11/16 10:39 AM) UA WBC [0-4] 10-20 *ABN* (01/11/16 10:39 AM) UA RBC [0-4] 0-4 (01/11/16 10:39 AM) Epithelial Cells 20-50 (01/11/16 10:39 AM) UA Bacteria Rare (01/11/16 10:39 AM) UA Mucous Present (01/11/16 10:39 AM) Immunizations Vaccine Date Refusal Reason tetanus/diphth/pertuss (Tdap) adult/adol 05/11/01 Procedures Procedure Date Related Diagnosis Body Site Collection of venous blood by venipuncture 01/11/16 Cystoscopy using panendoscope1 05/12/14 Mammogram - screening2 01/13/14 1Urethral calibration and dilitation. Hydrodistention of the bladder.SLTvaporization of chronic diffuse trigonitis. Bimanual pelvic exam. 2neg. result, done at [facility]- recommended to be done in 1 yr. Social History Social History Type Response Smoking Status Never smoker Assessment and Plan Extracted from: Title: Office Visit Note Author: Master Reece DO Date: 01/11/16 Assessment/Plan Exertional shortness of breath 1. Her history of shortness of breath with diaphoresis and recent syncopal episode raises concern as to whether this is cardiac in nature. 2. EKG today was for normal sinus rhythm with a rate of 62. 3. Screening labs ordered, report is pending. 4. Cardiology referral for farther evaluation and recommendations. This patient most likely will need stress test. Ordered: CBC w/ Differential Comprehensive Metabolic Panel EKG with Interpretation [id number] Internal Referral to Urology Office Visit Level 4 Est 48917 TSH with Reflex Free T4 Syncope 1. Recommendations as above. 2. Patient was advised that if this was to recur then she's to go straight to the emergency department for evaluation. Patient voiced understanding. Ordered: CBC w/ Differential Comprehensive Metabolic Panel EKG with Interpretation [id number] Internal Referral to Urology Office Visit Level 4 Est 35793 TSH with Reflex Free T4 Urge incontinence 1. We will refer her to Dr. Fisher for farther evaluation. 2. UA ordered, report is pending. Ordered: CBC w/ Differential Comprehensive Metabolic Panel EKG with Interpretation [id number] Internal Referral to Urology Office Visit Level 4 Est 65053 TSH with Reflex Free T4 Referrals to Other Providers urge incontinence, referred to: Chucho Fisher MD Referred by: Master Reece DO
--- OUTSIDE RECORDS SUMMARY | 2016-08-25 07:43 | XMS REPORT | Referral Summary ---
Author Author [facility], Urology Organization [facility] Address Unknown Phone Unavailable Care Team Providers Care Book Binder Name Role Phone Master Reece Primary Care Physician [phone] Encounter Date(s): 06/11/15 - 06/11/15 [facility], Urology [address] [place] [address] [place] [id number] Discharge Diagnosis: Urgency of urination Discharge Diagnosis: Overactive bladder Discharge Diagnosis: Frequency of urination Discharge Diagnosis: Bladder pain Discharge Disposition: 01-Home or Self Care Attending Physician: Momo Bergman JR, MD Admitting Physician: Momo Bergman JR, MD Vital Signs Most recent to 1 oldest [Reference Range]: Blood Pressure 118/70 mmHg [90-140/60-90 mmHg] (06/11/15 4:02 PM) Problem List Condition Effective Dates Status Health Status Informant Obesity(Confirmed) Active patient Trigonitis(Confirmed Active ) Allergies, Adverse Reactions, Alerts Substance Reaction Severity Status Bactrim DS Active Medications oxybutynin 15 mg/24 hr oral tablet, extended release 15 mg 1 tabs, Oral, Daily, # 42 tabs, 0 Refill(s), Pharmacy: [facility] [id number], 1 tabs Oral Daily,x6 weeks Start Date: [...] Bimanual pelvic exam. 2neg. result, done at [facility]- recommended to be done in 1 yr. Social History Social History Type Response Smoking Status Never smoker Assessment and Plan Extracted from: Title: Ambulatory Patient Education Author: Momo Bergman JR, MD Date : 06/11/15 Follow Up With: Where: When: [facility] [address] [place] [address]; [place] [address] Business (1) Within 3 to 5 days Comments: Follow Up With: Where: When: [facility] [address]; [place] [address] Business (1) In 6 weeks 07/23/2015 Comments: Extracted from: Title: Office Visit Note Author: Momo Bergman JR, MD Date: 06/11/15 Assessment/Plan 1.Bladder pain Patient was givena diet and instructionsabout reducing intake of caffeine highly acidic highly spiced foodand carbonated drinks and alcohol. Recheck in my office in 6 weeks if not getting better will consider doing cystoscopy hydrodistention of bladder Possible is SLT laser vaporization if she has chronic trigonitis or interstitial cystitis again. 2.Frequency of urination Patient should reduce intake of caffeine highly acidic highly spiced food 3.Urgency of urination Similar solution to problem number 2 4.Overactive bladder I started her on Oxybutynin 15 mg once a dayand I would like to see her again in6 weeks Ordered: Office Visit Level 3 Est [id number] Orders: oxybutynin, 15 mg 1 tabs, Oral, Daily, # 42 tabs, 0 Refill(s), Pharmacy: [facility] [id number], 1 tabs Oral Daily,x6 weeks
--- OUTSIDE RECORDS SUMMARY | 2016-08-25 07:43 | XMS REPORT | Referral Summary ---
Author Author [facility], [facility] Organization [facility] Address Unknown Phone Unavailable Care Team Providers Care Well Flow Operator Name Role Phone Master Reece Primary Care Physician [phone] Encounter VC Date(s): 02/25/16 - 02/25/16 [facility] [address] [place] [address] Discharge Diagnosis: Left hand pain Discharge Diagnosis: Swelling of left little finger Discharge Disposition: 01-Home or Self Care Attending Physician: Master Reece DO Admitting Physician: Master Reece DO Vital Signs Most recent to 1 oldest [Reference Range]: Temperature Tympanic 35.7 degC [36.6-38.1 degC] *LOW* (02/25/16 9:14 AM) Peripheral Pulse 63 bpm Rate [60-100 bpm] (02/25/16 9:14 AM) Blood Pressure 143/72 mmHg [90-140/60-90 mmHg] *HI* (02/25/16 9:14 AM) Problem List Condition Effective Dates Status [...] to 1 oldest [Reference Range]: WBC [4.8-10.8 5.7 10*3/uL 10*3/uL] (02/25/16 9:55 AM) RBC [4.00-5.20] 4.19 (02/25/16 9:55 AM) Hgb [12.0-16.0 12.6 gm/dL gm/dL] (02/25/16 9:55 AM) Hct [37.0-47.0 %] 37.7 % (02/25/16 9:55 AM) MCV [82.0-99.0 fL] 90.0 fL (02/25/16 9:55 AM) MCH [27.0-32.0 pg] 30.1 pg (02/25/16 9:55 AM) MCHC [32.0-36.0 33.4 gm/dL gm/dL] (02/25/16 9:55 AM) RDW [11.5-14.5 %] 12.5 % (02/25/16 9:55 AM) Platelet [150-400 189 10*3/uL 10*3/uL] (02/25/16 9:55 AM) MPV [8.8-14.8 fL] 11.4 fL (02/25/16 9:55 AM) Immature 0.2 % Granulocytes (02/25/16 9:55 AM) [0.0-1.0 %] Neutrophils [51-75 62 % %] (02/25/16 9:55 AM) Lymphocytes [20-46 31 % %] (02/25/16 9:55 AM) Monocytes [4-11 %] 7 % (02/25/16 9:55 AM) Eosinophils [0-4 %] 0 % (02/25/16 9:55 AM) Basophils [0-2 %] 0 % (02/25/16 9:55 AM) Neutro Absolute 3.53 10*3 [1.90-7.00 10*3] (02/25/16 9:55 AM) Lymph Absolute 1.78 10*3 [0.80-3.30 10*3] (02/25/16 9:55 AM) Rush Absolute 0.40 10*3 [0.30-1.00 10*3] (02/25/16 9:55 AM) Eos Absolute 0.00 10*3 [0.00-0.50 10*3] (02/25/16 9:55 AM) Baso Absolute 0.02 10*3 [0.00-0.20 10*3] (02/25/16 9:55 AM) Sed Rate [0-23] 25 *HI* (02/25/16 9:55 AM) Chemistry Most recent to 1 oldest [Reference Range]: Sodium Lvl [135-144 140 mEq/L mEq/L] (02/25/16 9:55 AM) Potassium Lvl 4.2 mEq/L [3.5-5.2 mEq/L] (02/25/16 9:55 AM) Chloride [99-111 108 mEq/L mEq/L] (02/25/16 9:55 AM) CO2 [22-31 mEq/L] 24 mEq/L (02/25/16 9:55 AM) AGAP [3-20] 8 (02/25/16 9:55 AM) BUN [10-20 mg/dL] 13 mg/dL (02/25/16 9:55 AM) Glucose Lvl [70-99 95 mg/dL mg/dL] (02/25/16 9:55 AM) Creatinine Lvl 0.69 mg/dL [0.57-1.11 mg/dL] (02/25/16 9:55 AM) eGFR [>60 mL/min] >60 mL/min 1 (02/25/16 9:55 AM) Calcium Lvl 9.3 mg/dL [8.9-10.5 mg/dL] (02/25/16 9:55 AM) Albumin Lvl [3.5-5.0 4.4 gm/dL gm/dL] (02/25/16 9:55 AM) Total Protein 7.0 gm/dL [6.1-7.7 gm/dL] (02/25/16 9:55 AM) Globulin [1.8-4.0 2.6 gm/dL gm/dL] (02/25/16 9:55 AM) ALT [0-55 U/L] 11 U/L (02/25/16 9:55 AM) AST [5-34 U/L] 13 U/L (02/25/16 9:55 AM) Alk Phos [40-150 98 U/L U/L] (02/25/16 9:55 AM) Bili Total [0.2-1.2 0.5 mg/dL mg/dL] (02/25/16 9:55 AM) 1Result Comment: Multiply eGFR results by 1.21 for race. Immunizations Vaccine Date Refusal Reason tetanus/diphth/pertuss (Tdap) adult/adol 05/11/01 Procedures Procedure Date Related Diagnosis Body Site Collection of venous blood by venipuncture 02/25/16 Cystoscopy using panendoscope1 05/12/14 Mammogram - screening2 01/13/14 1Urethral calibration and dilitation. Hydrodistention of the bladder.SLTvaporization of chronic diffuse trigonitis. Bimanual pelvic exam. 2neg. result, done at [facility]- recommended to be done in 1 yr. Social History Social History Type Response Smoking Status Never smoker Assessment and Plan Extracted from: Title: Office Visit Note Author: Master Reece DO Date: 02/25/16 Assessment/Plan Left hand pain 1. It's difficult to say whether she is having residual inflammatory effect from allergy to Vesicare 3 weeks after the initial presentation. 2. Labs order to consist of C-reactive protein, straight sedimentation rate , CBC and complete metabolic profile. 3. Imaging of both hands 4. Follow-up to processing mgr for farther evaluation Ordered: C-Reactive Protein (CRP) CBC w/ Differential Comprehensive Metabolic Panel Office Visit Level 4 Est 25022 Rheumatoid Factor Sedimentation Rate XR Hand 2 Views Left XR Hand 2 Views Right Swelling of left little finger As above. Ordered: C-Reactive Protein (CRP) CBC w/ Differential Comprehensive Metabolic Panel Office Visit Level 4 Est 09996 Rheumatoid Factor Sedimentation Rate XR Hand 2 Views Left XR Hand 2 Views Right Recommended flu vaccination.
--- OUTSIDE RECORDS SUMMARY | 2016-08-25 07:43 | XMS REPORT | Referral Summary ---
Author Organization Unknown Address Unknown Phone Unavailable Care Team Providers Care Automation Sales Manager Name Role Phone Master Reece Primary Care Physician [phone] Encounter VC Date(s): 06/26/14 - 06/26/14 [facility], Sean, Urology [address] [place] [address] [place], [place] [address] Discharge Diagnosis: Chronic trigonitis Discharge Disposition: Home or Self Care Attending Physician: Momo Bergman JR, MD Admitting Physician: Momo Bergman JR, MD Vital Signs Most recent to 1 oldest [Reference Range]: Peripheral Pulse 54 bpm Rate [60-100 bpm] *LOW* (06/26/14 2:35 PM) Blood Pressure 108/60 mmHg [90-140/60-90 mmHg] (06/26/14 2:35 PM) Most recent to 1 oldest [Reference Range]: SpO2 98 % (06/26/14 2:35 PM) Problem List No data available for [...] Bimanual pelvic exam. 2neg. result, done at [facility]- recommended to be done in 1 yr. Social History Social History Type Response Smoking Status Never smoker Assessment and Plan Extracted from: Title: Ambulatory Patient Education Author: Momo Bergman JR, MD Date : 2/16/15 Follow Up With: Where: When: Master Viji[address]; [place] [facility] [place] [address] Business (1) Within 3 to 5 days Comments: Follow Up With: Where: When: Momo Bergman [address] [place] [address] Drive; [place] [address] Business (1) In 6 weeks 08/07/2014 Comments:
--- OUTSIDE RECORDS SUMMARY | 2016-08-25 07:43 | XMS REPORT | Referral Summary ---
Author Author [facility] Organization [facility] Address Unknown Phone Unavailable Care Team Providers Care Stone Mill Operator Name Role Phone Master Reece Primary Care Physician [phone] Encounter VC Date(s): 04/11/16 - 04/11/16 [facility] [address] [place] [address] [facility] Discharge Diagnosis: Sinusitis Discharge Disposition: 01-Home or Self Care Attending Physician: Monae Frank Attending Physician: Provider, Immediate Care Admitting Physician: Provider, Immediate Care Vital Signs Most recent to 1 oldest [Reference Range]: Temperature Oral 36.5 degC [35.8-37.3 degC] (04/11/16 3:28 PM) Peripheral Pulse 67 bpm Rate [60-100 bpm] (04/11/16 3:28 PM) Blood Pressure 117/74 mmHg [90-140/60-90 mmHg] (04/11/16 3:28 PM) SpO2 98 % (04/11/16 3:28 PM) Problem List Condition Effective Dates Status Health Status Informant Obesity(Confirmed) Active patient Syncope and Active collapse(Confirmed) Trigonitis(Confirmed Active ) Allergies, Adverse Reactions, Alerts Substance Reaction Severity Status Bactrim DS Active Fish Oil Active VESIcare swelling in hand Active Medications Ceftin 250 mg oral tablet 250 mg 1 tabs, Oral, BID, X 10 days, # 20 tabs, 0 Refill(s), Pharmacy: [id number], 1 tabs Oral BID,x10 days Start Date: 04/11/16 Stop Date: 04/21/16 Status: Ordered Tylenol Regular Strength 1 tabs, [...] Bimanual pelvic exam. 2neg. result, done at [facility]- recommended to be done in 1 yr. Social History Social History Type Response Smoking Status Never smoker Assessment and Plan Extracted from: Title: Office Visit Note Author: Monae Frank Date: 04/11/16 Assessment/Plan She does seem to have a sinus infection. I sent outCeftin 250 mg take one twice daily for 10 days. Recommend taking [id number] Mucinex. Follow- up if no improvementin the next 3-5 days or sooner if worsening of symptoms. She voiced understanding and agreement with these plans. Sinusitis Ordered: Office Visit Level 3 Est 69898
--- OUTSIDE RECORDS SUMMARY | 2016-08-25 07:43 | XMS REPORT | Referral Summary ---
Author Author [facility] Organization [facility] Address Unknown Phone Unavailable Care Team Providers Care Musical Therapist Name Role Phone Master Reece Primary Care Physician [phone] Encounter VC Date(s): 01/25/16 - 01/25/16 [facility] [address], [place] [address] Discharge Diagnosis: MASON (dyspnea on exertion) Discharge Diagnosis: Syncope and collapse Discharge Diagnosis: Syncope and collapse Discharge Disposition: 01-Home or Self Care Attending Physician: Isaac Pelaez MD Admitting Physician: Isaac Pelaez MD Referring Physician: Master Reece DO Vital Signs Most recent to 1 oldest [Reference Range]: Peripheral Pulse 62 bpm Rate [60-100 bpm] (01/25/16 11:55 AM) Blood Pressure 124/70 mmHg [90-140/60-90 mmHg] (01/25/16 11:55 AM) Problem List Condition Effective Dates Status [...] Bimanual pelvic exam. 2neg. result, done at [facility]- recommended to be done in 1 yr. Social History Social History Type Response Smoking Status Never smoker Assessment and Plan Extracted from: Title: Ambulatory Patient Education Author: Isaac Pelaez MD Date: Family Medicine Syncope Syncope means a person passes out (faints). The person usually wakes up in less than 5 minutes. It is important to seek medical care for syncope. HOME CARE Have someone stay with you until you feel normal. Do not drive, use machines, or play sports until your doctor says it is okay. Keep all doctor visits as told. Lie down when you feel like you might pass out. Take deep breaths. Wait until you feel normal before standing up. Drink enough fluids to keep your pee (urine) clear or pale yellow. If you take blood pressure or heart medicine, get up slowly. Take several minutes to sit and then stand. GET HELP RIGHT AWAY IF: You have a severe headache. You have pain in the chest, belly (abdomen), or back. You are bleeding from the mouth or butt (rectum). You have black or tarry poop (stool). You have an irregular or very fast heartbeat. You have pain with breathing. You keep passing out, or you have shaking (seizures) when you pass out. You pass out when sitting or lying down. You feel confused. You have trouble walking. You have severe weakness. You have vision problems. If you fainted, call your local emergency services (911 in [place] Do not drive yourself to the hospital. MAKE SURE YOU: Understand these instructions. Will watch your condition. Will get help right away if you are not doing well or get worse. This information is not intended to replace advice given to you by your health care provider. Make sure you discuss any questions you have with your health care provider. Document Released: 10/13/2008 Document Revised: 10/26/2012 Document Reviewed: ExitCare Patient Information 2016 [employer] No follow up information was provided. Extracted from: Title: Office Visit Note Author: Isaac Pelaez MD Date: 01/25/16 Assessment/Plan 1.MASON (dyspnea on exertion) Due to the patient's dyspnea we will order an echocardiogram to evaluatefor any structural heart abnormalities. Furthermore an exercise treadmill ECG stress test will be ordered to evaluate for underlying ischemic heart disease. The patient reviewed the patient's EKG that was performed on January 11, 2016demonstrated normal sinus rhythmwith a heart rate of [address] segment abnormalities. Ordered: Office Visit Level 4 New [address]8918 Request for Cardiovascular Echo Request for Cardiovascular Stress Test 2.Syncope and collapse, Syncope and collapse Due to the patient's syncope and collapse will order a carotid ultrasound to evaluate for significant carotid artery stenosis. Furthermore an echocardiogramwill be ordered to evaluate for any structural heart abnormalities. If none of those are revealing and the patient continues to have her symptoms we willrecommend a 30 day event monitor to evaluate for any arrhythmias. Ordered: Office Visit Level 4 New [address]196 US Carotid Duplex Bilateral The patient will follow-up with us in6 months from today or sooner depending on results of the studies. Thank you for allowing us to be involved in the care of Ms. Gandhi.
--- OUTSIDE RECORDS SUMMARY | 2016-08-25 07:43 | XMS REPORT | Referral Summary ---
Author Author [facility] Organization [facility] Address Unknown Phone Unavailable Care Team Providers Care Manager Learning Name Role Phone Master Reece Primary Care Physician [phone] Encounter VC Date(s): 12/15/14 - 12/15/14 [facility], [address] [place] [address] Discharge Diagnosis: History of UTI Discharge Diagnosis: Chronic trigonitis Discharge Diagnosis: Bladder pain Discharge Disposition: 01-Home or Self Care Attending Physician: Meghna Bergman APRN Admitting Physician: Meghna Bergman APRN Vital Signs Most recent to 1 oldest [Reference Range]: Temperature Tympanic 36.6 degC [36.6-38.1 degC] (12/15/14 10:01 AM) Peripheral Pulse 72 bpm Rate [60-100 bpm] (12/15/14 10:01 AM) Blood Pressure 112/66 mmHg [90-140/60-90 mmHg] (12/15/14 10:01 AM) Problem List Condition Effective Dates Status Health Status Informant Obesity(Confirmed) Active patient Trigonitis(Confirmed Active ) Allergies, Adverse Reactions, Alerts Substance Reaction Severity Status Bactrim DS Active Medications oxybutynin 15 mg/24 hr oral tablet, extended release 15 mg 1 tabs, Oral, Daily, # 42 tabs, 0 Refill(s), Pharmacy: [facility] [id number], 1 tabs Oral Daily,x6 weeks Start Date: 06/11/15 Stop Date: 07/23/15 Status: Ordered Tylenol Regular Strength mg, Oral, q4hr, 0 Refill(s) Start Date: 06/11/15 Status: Ordered Results Urinalysis Most recent to 1 oldest [Reference Range]: UA WBC [0-4] 0-2 (12/15/14 9:40 AM) UA RBC [0-2] None seen (12/15/14 9:40 AM) Epithelial Cells 2-5 (12/15/14 9:40 AM) UA Bacteria Rare (12/15/14 9:40 AM) Microbiology Reports TEST: Urine Culture STATUS: Auth (Verified) BODY SITE: SOURCE: Urine, Clean Catch COLLECTED DATE/TIME: 12/15/14 9:40 AM Urine Culture Normal urogenital/skin oskar present Immunizations Vaccine Date Refusal Reason tetanus/diphth/pertuss (Tdap) adult/adol 05/11/01 Procedures Procedure Date Related Diagnosis Body Site Cystoscopy using panendoscope1 05/12/14 Mammogram - screening2 01/13/14 1Urethral calibration and dilitation. Hydrodistention of the bladder.SLTvaporization of chronic diffuse trigonitis. Bimanual pelvic exam. 2neg. result, done at [facility]- recommended to be done in 1 yr. Social History Social History Type Response Smoking Status Never smoker Assessment and Plan No data available for this section
[2016-08-25 07:55] VITALS: Ht 160 cm; Wt 75.8 kg
[2016-08-25 07:56] VITALS: BP 159/72; PULSE 64; RESP 15; TEMP 97.6; O2SAT 100
[2016-08-25] MEDS ORDERED: FLEET PHOSPHO-SODA 133 ML ENEMA RECTALLY PRN (08:00)
[2016-08-25] MEDS ORDERED: CIPR-212 PO (08:16)
[2016-08-25] MEDS ORDERED: CALC1TAB (08:20)
[2016-08-25] MEDS ORDERED: NAPR500T3 PO (08:21)
--- NOTE | 2016-08-25 09:32 | ANESPREOP ---
Anesthesia Record Date and Time DATE: 08/25/16 TIME: 09:30 Pre-Op Diagnosis crcs Proposed Surgical Procedure COLONOSCOPY Allergies: Coded Allergies: fish oil (Verified Allergy, Unknown, 08/25/16) solifenacin (Verified Allergy, Unknown, 08/25/16) sulfamethoxazole (Verified Allergy, Unknown, 08/25/16) trimethoprim (Verified Allergy, Unknown, 08/25/16) Ht/Wt/BMI Height: 5 ' 3.00 " Weight: 75.800 kg BMI: 29.6 kg/m2 Vital Signs Date Time Temp Pulse Resp B/P Pulse Ox O2 Delivery O2 Flow Rate FiO2 08/25/16 07:56 97.6 64 15 159/72 100 Room Air Medications Inpatient Medications Current Medications Medications (Trade) Dose Ordered Sig/Jeyson Start Time Stop Time Status Last Admin Dose Admin Lactated Ringer's (Lactated Ringers) 1,000 ml @ 30 mls/hr Q24H 08/25/16 07:00 08/25/16 08:28 30 MLS/HR Sodium Biphosphate/ Sodium Phosphate (Fleet Enema) 1 enema PRN PRN 08/25/16 08:00 08/25/16 08:28 1 ENEMA Calcium Carbonate/Vitamin D3 (Caltrate 600 + D Tablet) 1 Each Tablet, DAILY, ( Reported) Last Taken: on 08/21/16 Naproxen (Naproxen) 500 Mg Tablet, 1 TAB PO PRN Q 12 HOURS PRN for PAIN, (Reported) Last Taken: on 08/20/16 Currently on Beta Kelby: No Medical/Surgical History Anesthesia PMH: Reports: Obesity, Denies: *Angina, *Diabetes, *Dyspnea, * Hypertension, *PR, Anesthesia Reactions (no family members with problems with anesthesia), Arthritis, Asthma, CHF, COPD, CVA/Stroke/TIA, Cancer, Clotting Problems, Deep Vein Thrombosis, Glaucoma, Hepatitis, Hiatal Hernia, Malignant Hyperthermia (no family history of MH), Pneumonia, Reflux, Renal Disease, Seizures, Sleep Apnea, Thyroid Disease, Tuberculosis Smoking Status: Never smoker Has pt. smoked today?: No Use Chewing Tobacco?: No Second Hand Exposure: No Substance Use Type: does not use Substance last used: unknown Alcohol Intake: none Last Drink: unknown HX of Last Menstrual Period: POST MENOPAUSE AGE 53 PER H&P Past Surgical History Orthopedic Surgeries: No Abdominal Surgeries: No Genitourinary Surgeries: Yes - CYSTOSCOPY PER H&P Cardiac Surgeries: No Endocrine Surgeries: No Reproductive Surgeries: No Neurological Surgeries: No Ear Surgeries: No Nose Surgeries: No Throat Surgeries: No Other Surgeries: No Anesthesia Adverse Reactions: FOUND none Family Hx of Anesthesia Advers: none Hx of Motion Sickness: No Pertinent Findings EKG Rhythm: Sinus Rhythm Physical Exam Respiratory: Bilat breath sounds equal, Lungs clear Cardiovascular: FOUND Regular rate, rhythm, FOUND No murmur Airway Assessment Mallampati Score: II TMD: 3 Fingerbreadths Neck Extension: Fair Overall Assessment: No Airway Concerns ASA: 2 Plan Anesthesia Plan: TIVA Discussion Discussed risks/options/alternatives of anesthesia and questions answered. Patient consents. Nursing pain assessment noted. Attestation Statement Prior to the delivery of any anesthetic medication, I examined the patient, developed the plan, obtained the patient's consent and discussed the risk and benefits of the procedure with the patient/guardian. SHOSHANA THOMAS CRNA Aug 25, 2016 09:32
[2016-08-25] MEDS ORDERED: PROPOFOL 500mg 50 ML IV ONE (09:55)
[2016-08-25] MEDS ORDERED: LIDOCAINE 1% (10mg/ml) 2ml SDV ONE (09:55)
[2016-08-25 09:59] VITALS: BP 101/57; PULSE 76; RESP 14; TEMP 98.1; O2SAT 97
[2016-08-25 10:15] VITALS: BP 126/55; PULSE 57; RESP 16; O2SAT 99
[2016-08-25 10:45] VITALS: BP 137/64; PULSE 61; RESP 16; TEMP 97; O2SAT 99
--- NOTE | 2016-08-25 11:10 | ANESPO ---
Post-Op Note Date 08/25/16 Time: 11:09 Status Pt Participated in Evaluation: Pt participated in person Vital Signs Date Time Temp Pulse Resp B/P Pulse Ox O2 Delivery O2 Flow Rate FiO2 08/25/16 10:45 97.0 61 16 137/64 99 Room Air Respiratory Function: Airway patent, Regular respirations Cardiovascular Function: Regular pulse Mental Status: Alert/oriented Pain Level Intensity: 0 Unable to Assess Pain Due To: Medicated/Sleeping Hydration: Taking po fluids Complications during Recovery None apparent Post-Anesthesia Notes [email or web address]. [email or web address] Follow-Up Instructions Instructions Per Surgeon Additional Information none SHOSHANA THOMAS CRNA Aug 25, 2016 11:10
--- NOTE | 2016-08-25 12:06 | OPNOTEF ---
DATE OF SERVICE 08/25/2016 SURGEON Jose A Haider MD PREOPERATIVE DIAGNOSIS Colorectal cancer surveillance. POSTOPERATIVE DIAGNOSIS Colorectal cancer surveillance, normal colonoscopy. PROCEDURE Colonoscopy ANESTHESIA TIVA BRIEF HISTORY/INDICATIONS Mrs. Jasso is a 56-year-old female who presents today to [facility] to undergo a colonoscopy to serve as a portion of her overall colorectal cancer surveillance. For completeness, please refer to notes included in the patient's chart. FINDINGS Upon colonoscopy, there was no evidence for angiodysplastic lesions, polyps, diverticula or lucas malignancies. DESCRIPTION OF PROCEDURE After informed consent was obtained, the patient was brought to the endoscopy suite and placed on the table in left lateral decubitus position. The patient subsequently underwent total intravenous anesthesia by the nurse supervisory it specialist per my request. A formal timeout was then performed. Next, a digital rectal examination was performed. Normal sphincter tone. No rectal masses were appreciated. An Olympus colonoscope was inserted in the anus and advanced with the lumen of the colon under direct visualization at all times until the cecum was ascertained. Triangulation of the tenia coli, ileocecal valve and appendiceal lumen were all visualized. The scope was then slowly withdrawn, again while maintaining visualization of the lumen at all times. As stated above, the entire colon was without evidence for angiodysplastic lesions, polyps, diverticula or lucas malignancies. The scope continued to be withdrawn until it was brought forth back into the rectal vault. A J-maneuver was then performed. No worrisome perianal pathology was noted. The scope was allowed to straighten and was withdrawn through the anal verge. The patient tolerated the procedure without difficulty and was sent back to the preop area in stable condition. Secondary to the absence of findings upon this colonoscopy, the patient will not need to undergo a repeat colonoscopy until ten years from now unless new indications should arise. TIGRE
== END 2016-08-25 11:23 | disposition home or self-care (01) ==
LOC: SCU 07:39
PROVIDERS: ATTEND Surgery
DX: Z12.11 Encounter for screening for malignant neoplasm of colon (principal); Z79.899 Other long term (current) drug therapy
CPT/HCPCS: 45378; J7120